=== PATIENT | female | born 1980 | race Caucasian/White ===

== ENCOUNTER 2020-02-08 14:10 | Emergency (ER) | payer SELFPAY ==
[~2020-02-08] VITALS: Ht 170.2 cm; Wt 61.2 kg
[~2020-02-08 14:10] MED LIST: PRED10 PO; Pepcid40 MG PO
[2020-02-08] MEDS ORDERED: ALBU90OI (14:24)
[2020-02-08] MEDS ORDERED: Trileptal150 MG (14:25)
[2020-02-08] MEDS ORDERED: CLON1 (14:25)
[2020-02-08] MEDS ORDERED: METPRE4DP PO (14:33)
== END 2020-02-08 15:02 | disposition home or self-care (01) ==
LOC: ER 14:10
DX: L23.7 Allergic contact dermatitis due to plants, except food (principal); J45.909 Unspecified asthma, uncomplicated; F41.9 Anxiety disorder, unspecified; F31.9 Bipolar disorder, unspecified; Z91.018 Allergy to other foods; Z79.899 Other long term (current) drug therapy; Z79.51 Long term (current) use of inhaled steroids
CPT/HCPCS: 96372; 99282-25; J3301

== ENCOUNTER 2021-04-16 00:53 | Emergency (ER) | payer SELFPAY ==
[~2021-04-16] VITALS: Ht 170.2 cm; Wt 67.1 kg
[~2021-04-16 00:53] MED LIST changes: +ALBU90OI; +CLON1; +METPRE4DP PO; +Trileptal150 MG
[2021-04-16] MEDS ORDERED: Amphetamine Sal30 MG (01:30)
[2021-04-16] MEDS ORDERED: CLONAZEPAM1 MG PO (01:31)
[2021-04-16] MEDS ORDERED: LAMOTRIGINE100 M1 PO (01:31)
[2021-04-16] MEDS ORDERED: Prednisone20 MG PO (15:29)
== END 2021-04-16 01:39 | disposition home or self-care (01) ==
LOC: ER 00:53
DX: L23.7 Allergic contact dermatitis due to plants, except food (principal); Z91.018 Allergy to other foods; Z79.899 Other long term (current) drug therapy; Z87.891 Personal history of nicotine dependence
CPT/HCPCS: 96372; 99282-25; J3301